=== PATIENT | male | born 2000 | race Asian ===

== ENCOUNTER 2023-11-04 20:27 | Emergency (ER) | payer OTHER, SELFPAY ==
[2023-11-04 20:37] VITALS: BMI 25.4
[2023-11-04 20:43] VITALS: BP 138/81; PULSE 90; RESP 18; TEMP 37.2; O2SAT 98
[2023-11-04 20:59] LABS: COVID19 -Nasal RAPID POSITIVE (Negative)
--- NOTE | 2023-11-04 21:42 | ED_ITS ---
HPI - General Adult General Chief complaint: Upper Respiratory Symptoms Stated complaint: tested + for Covid Time Seen by Provider: 11/04/23 21:41 Source: patient Mode of arrival: Ambulatory History of Present Illness HPI narrative: 23-year-old young man fully vaccinated against COVID but no known obvious COVID infection previously presents with 24 hours of fever and cough. He would a COVID test that was positive at home and the [facility] is requesting that he have a formal diagnosis of COVID any presents to the ER for such. He has not yet taken any medications. He is having minimal cough, minor runny nose, injected sclera, body aches and low-grade fevers. He is not complaining of significant dyspnea. Not complaining of headache, chest pain, palpitations abdominal pain or diarrhea. Related Data Allergies Allergy/AdvReac Type Severity Reaction Status Date / Time No Known Drug Allergies Allergy Verified 11/04/23 20:40 Review of Systems Review of Systems Narrative: Pertinent positive and negative findings as per HPI Patient History Social History Smoking Status: Never smoker Smoking Status: Never smoker alcohol intake frequency: 0-2 drinks per day Substance Use Type: does not use Exam Initial Vital Signs Initial Vital Signs: Vital Signs Temperature 99.0 F 11/04/23 20:43 Pulse Rate 90 11/04/23 20:43 Respiratory Rate 18 11/04/23 20:43 Blood Pressure 138/81 11/04/23 20:43 Pulse Oximetry 98 11/04/23 20:43 Oxygen Delivery Method Room Air 11/04/23 20:43 General: in no acute distress. Able to give a complete and coherent history. Well-nourished well-developed HEENT: Moist mucous membranes, normal sclera with reactive pupils, mildly injected sclera Neck: No cervical adenopathy Respiratory: Lungs are clear to auscultation, no wheezing no rales no rhonchi. Full and symmetrical air movement Cardiac: Regular rate and rhythm no murmurs no bruits Skin: Warm and dry, no rashes Neurologic: Grossly neurologically intact with no obvious asymmetries or abnormalities Psych: Cooperative, appropriate insight and affect Course Orders Ordered: ED Orders 11/04/23 20:41 COVID19 -Nasal RAPID Stat Acetaminophen (Acetaminophen 325 Mg Tablet) 325 mg PO NOW ONE Stop: 11/04/23 21:42 Discontinued Medications Ibuprofen (Ibuprofen 400 Mg Tablet) 400 mg PO NOW ONE Stop: 11/04/23 21:42 Vital Signs Vital signs: Vital Signs - 8 hr 11/04/23 20:43 Temperature 99.0 F Pulse Rate 90 Respiratory Rate 18 Blood Pressure 138/81 Pulse Oximetry 98 Oxygen Delivery Method Room Air Medical Decision Making Lab Data Labs: Lab Results 11/04/23 Range/Units 20:41 SARS-CoV-2 (PCR) Positive H (Negative) MDM Narrative Medical decision making narrative: CC: Fever, cough, positive COVID test at home sent in by work for positive confirmation Data collected from: patient Social determinants of health that may influence the patients condition: [employer] Exam documented above, pertinent findings include: Minor cough, minor scleral injection no hypoxia otherwise unremarkable Lab Test results independently reviewed as above. Pertinent findings: COVID test is positive Treatments: Ibuprofen and Tylenol Discussion: Otherwise healthy 23-year-old young man with day 1 of COVID. Reviewed anticipated course of recovery. 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 There is no indication for additional workup or hospitalization at this time. Questions are answered and he is safe for discharge Discharge Plan Departure Patient Disposition: Home Clinical Impression: COVID-19 Instructions: COVID-19 Activity Restrictions/Additional Instructions: Thank you for coming in today You do have COVID Using 400 mg of ibuprofen (2 [id number] pills) and 1 Tylenol every 6 hours can be very helpful in controlling pain and fever. You can use any of the [id number] cough medicines or NyQuil. Making sure that you actually getting plenty of sleep with a significant fatigue that you likely will experience secondary to COVID is important. If you find that you are getting worse or develop any new symptoms, please feel free to return to the emergency department for further evaluation. Referrals: Miscellaneous,[facility] [Primary Care Provider] - Stand Alone Forms: Patient Portal/API
[2023-11-04] MEDS: ACETAMINOPHEN 325 MG TABLET PO (21:59)
[2023-11-04] MEDS: IBUPROFEN 400 MG TABLET PO (22:00)
[2023-11-04 22:01] VITALS: BP 118/68; PULSE 70; RESP 16; TEMP 36.7; O2SAT 99
== END 2023-11-04 22:02 | disposition home or self-care (01) ==
PROVIDERS: Emergency Provider Emergency Medicine
DX: U07.1 COVID-19 (principal)
CPT/HCPCS: 87635; 99282; 99283; C9803